=== PATIENT | male | born 1985 | race Caucasian/White ===

== ENCOUNTER 2018-10-03 19:42 | Emergency (ER) | payer SELFPAY, OTHER ==
[~2018-10-03] VITALS: Ht 177.8 cm; Wt 86.2 kg
[2018-10-03 19:53] VITALS: BP 89/55
--- NOTE | 2018-10-03 20:00 | NUR ---
ED Nurse Note: Patient was BIB [employer] for medical clearance. According to [employer] he was trying to break down someones house and car. Patient presented drowsy, under heroin influence. AAO x4, VSS at this time, skin is warm to touch. [employer] by bed side.
[2018-10-03] MEDS ORDERED: IBUPROFEN600 MG ORAL (20:55)
--- NOTE | 2018-10-03 20:55 | Emergency Room Report ---
History of Present Illness General Chief Complaint: Medical Clearance Source: Patient Present Illness HPI 33-year-old male with history of drug abuse and alcohol abuse was brought in by [employer] for medical clearance. Patient broke the windows and now complaining of left shoulder pain however has full range of motion in his left shoulder where he is reporting he has pain. 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 Patient is rating his pain 3 out of 10 without radiation. Patient admits to using heroin, methamphetamine , Xanax, and opiates as well as alcohol.. Denies abdominal pain, nausea vomiting, headache, dizziness, chest pain, shortness of breath, palpitation, and all other associated symptoms. Denies pain radiation, tingling and numbness. Has not taken any medication for his symptoms. Patient is handcuffed. Patient History Past Medical History: see triage record Past Surgical History: unable to obtain Pertinent Family History: none Immunizations: UTD Reviewed Nursing Documentation: PMH: Agreed; PSxH: Agreed Nursing Documentation-PMH Past Medical History: No Stated History Review of Systems All Other Systems: negative except mentioned in HPI Physical Exam Vital Signs Date Time Temp Pulse Resp B/P (MAP) Pulse Ox O2 Delivery O2 Flow Rate FiO2 10/03/18 19:44 98.4 93 18 89/55 (66) 98 Room Air Sp02 EP Interpretation: reviewed, normal General Appearance: mild distress Head: normocephalic, atraumatic Eyes: bilateral eye normal inspection, bilateral eye PERRL ENT: normal ENT inspection, hearing grossly normal, no angioedema Neck: normal inspection, full range of motion, supple Respiratory: normal inspection, chest non-tender, lungs clear, normal breath sounds, no rhonchi, no wheezing Cardiovascular #1: normal inspection, regular rate, rhythm, no edema, no murmur Gastrointestinal: non tender, soft, no mass Rectal: deferred Genitourinary: no CVA tenderness Musculoskeletal: back normal, non-tender, other - Ecchymosis and tenderness of left maxilla, patient is able to open and close jaw and raise his eyebrows without any pain. Full range of motion of left shoulder no motor or sensory deficits noted. Neurologic: normal inspection, alert, oriented x3 Psychiatric: normal inspection, judgement/insight normal Skin: normal color Lymphatic: normal inspection, no adenopathy Medical Decision Making PA Attestation All diagnoses and treatment plans were reviewed and discussed with my supervising physician Dr. Rojo Diagnostic Impression: Primary Impression: Facial contusion Additional Impression: Shoulder contusion ER Course 33-year-old male with history of drug abuse and alcohol abuse was brought in by [employer] for medical clearance. Patient broke the windows and now complaining of left shoulder pain however has full range of motion in his left shoulder where he is reporting he has pain. 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 Patient is rating his pain 3 out of 10 without radiation. Patient admits to using heroin, methamphetamine , Xanax, and opiates as well as alcohol.. Denies abdominal pain, nausea vomiting, headache, dizziness, chest pain, shortness of breath, palpitation, and all other associated symptoms. Denies pain radiation, tingling and numbness. Has not taken any medication for his symptoms. Patient is handcuffed. Ddx considered but are not limited to: cerebral hematoma, concussion, skull fracture, head contusion , shoulder contusion, facial bone fracture. Facial bone contusion Vital signs: are WNL, pt. is afebrile H&PE are most consistent with: Facial contusion, left shoulder contusion ORDERS: Facial CT no contrast, ibuprofen ED INTERVENTIONS: None required at this time. DISCHARGE: At this time pt. is stable for d/c to home. Will provide printed patient care instructions, and any necessary prescriptions. Care plan and follow up instructions have been discussed with the patient prior to discharge. Patient was medically cleared and discharged to law enforcement. CT/MRI/US Diagnostic Results CT/MRI/US Diagnostic Results : Imaging Test Ordered: head CT no contrast Impression WNL no fx Last Vital Signs Date Time Temp Pulse Resp B/P (MAP) Pulse Ox O2 Delivery O2 Flow Rate FiO2 10/03/18 19:53 98.4 18 89/55 98 Room Air 10/03/18 19:53 93 Disposition: D/C TO [employer] IN [facility] Condition: Stable Scripts Ibuprofen* (MOTRIN*) 600 Mg Tablet 600 MG ORAL Q8H PRN for For Pain, #30 TAB 0 Refills Prov: Rosalinda Patel 10/03/18 Referrals: [facility] (PCP) Patient Instructions: Facial or Scalp Contusion Rosalinda Patel Oct 03, 2018 20:55
[2018-10-03 21:07] VITALS: BP 89/55
--- NOTE | 2018-10-03 21:08 | NUR ---
ED Nurse Note: Pt cleared by health care Provider for discharge. DC instructions/prescription was given and explained to pt and verbalized understanding of teachings. All medical deviecs such as ID band removed. Pt is AAO x4, ambulatory and left with all personal belongings.
--- NOTE | 2018-10-04 15:39 | Diagnostic Imaging Report ---
Indications: Pain, status post fall Technique: Spiral images obtained through the facial bones. No IV contrast utilized. Multiplanar reconstructions were generated.Total dose length product 601.4 mGycm. CTDIvol(s) 28.19 mGy. Dose reduction achieved using automated exposure control Comparison: none Findings: No acute fracture. No worrisome sinus opacification. The optic lobes are intact. The visualized intracranial structures are unremarkable. There is evidence of prior dental extractions and multiple dental caries. The facial soft tissues are unremarkable. Impression: No acute bony trauma Dental disease This agrees with the preliminary interpretation provided overnight by Dr. Kline The CT scanner at [facility] is accredited by the [employer] and the scans are performed using protocols designed to limit radiation exposure to as low as reasonably achievable to attain images of sufficient resolution adequate for diagnostic evaluation.
== END 2018-10-03 21:08 ==
LOC: EMR 20:26
DX: S40.012A Contusion of left shoulder, initial encounter (principal); S00.83XA Contusion of other part of head, initial encounter; F15.10 Other stimulant abuse, uncomplicated; F10.10 Alcohol abuse, uncomplicated; F11.10 Opioid abuse, uncomplicated; F13.10 Sedative, hypnotic or anxiolytic abuse, uncomplicated; W19.XXXA Unspecified fall, initial encounter; Y92.810 Car as the place of occurrence of the external cause
CPT/HCPCS: 70486; 99284